=== PATIENT | male | born 1970 | race Caucasian/White ===

== ENCOUNTER 2023-10-27 06:23 | Day surgery (SDC) | payer OTHER, SELFPAY ==
[2023-10-27 13:17] VITALS: BMI 27.3
[2023-10-27 13:19] VITALS: BMI 27.3
[2023-10-27 13:20] VITALS: BP 124/86
[2023-10-27 15:53] VITALS: BP 80/59
[2023-10-27 15:56] VITALS: BP 100/80
[2023-10-27 16:00] VITALS: BP 105/82
[2023-10-27 16:15] VITALS: BP 103/78
== END 2023-10-27 16:25 | disposition home or self-care (01) ==
LOC: SDS 06:23
PROVIDERS: ATTENDING PHYSICIAN Internal Medicine Gastroenterology
DX: K63.89 Other specified diseases of intestine (principal); K62.89 Other specified diseases of anus and rectum; K62.1 Rectal polyp; K64.0 First degree hemorrhoids
CPT/HCPCS: 45349; 88305